=== PATIENT | male | born 1975 | race Caucasian/White ===

== ENCOUNTER → 2017-10-09 | Outpatient (CLI) | payer OTHER ==
--- NOTE | 2017-10-11 14:50 | PCVCIMAG ---
APPROVED REPORT Study performed: 10/09/2017 13:20:48 EXAM: Comprehensive 2D, Doppler, and color-flow Echocardiogram Patient Location: Echo lab Room #: 2Status: routine BSA: 2.43 HR: 74 bpmBP: 124/86 mmHg Rhythm: NSR Other Information Study Quality: Adequate Risk Factors: Cardiac Risk Factors: Hyperlipidemia Indications Palpitations Dilated aortic root,sinus of Valsalva and ascending aorta 2D Dimensions IVSd: 9.71 (7-11mm)LVOT Diam: 25.85 (18-24mm) LVDd: 54.95 mmSinus of Valsalva: 48.00 mm Sinotubular Junction: 41.00 mm PWd: 8.13 (7-11mm)Ascending Ao: 44.00 (22-36mm) LVDs: 31.40 (25-40mm)Aortic Arch: 26.0 (22-36mm) Left Atrium: 31.11 (27-40mm)Desc Ao: 20.0 (20-30mm) Aortic Root: 40.24 mm LV Single Plane 4CH: 51.35 % LV Single Plane 2CH: 71.69 %Lane's LVEF: 61.52 % Biplane EF: 61.0 % Volumes Left Atrial Volume (Systole) Single Plane 4CH: 50.87 mLSingle Plane 2CH: 70.78 mL Biplane LA Volume: 64.00 mLLA ESV Index: 26.00 mL/m2 Aortic Valve AoV Peak Babar.: 1.14 m/s AO Peak Gr.: 5.42 mmHgLVOT Max P.85 mmHg LVOT Max V: 0.98 m/s JACKLYN Vmax: 4.52 cm2 Mitral Valve E/A Ratio: 0.7 MV Decel. Time: 198.91 ms MV E Max Babar.: 0.44 m/s MV A Babar.: 0.66 m/s IVRT: 103.81 ms TDI E/Lateral E': 3.67E/Medial E': 4.40 Medial E' Babar.: 0.10 m/s Lateral E' Babar.: 0.12 m/s Pulmonary Valve PV Peak Babar.: 0.83 m/sPV Peak Gr.: 2.73 mmHg Pulmonary Vein P Vein S: 0.42 m/sP Vein A: 0.35 m/s P Vein D: 0.30 m/sP Vein A Dur.: 103.8 msec P Vein S/D Ratio: 1.40 Tricuspid Valve TV Vmax: 0.55 m/s Left Ventricle The left ventricle is normal size. There is normal LV segmental wall motion. There is normal left ventricular wall thickness. Left ventricular systolic function is normal. The left ventricular ejection fraction is within the normal range. LVEF is 60-65%. The left ventricular diastolic function is normal. Right Ventricle The right ventricle is normal size. The right ventricular systolic function is normal. Atria The left atrium size is normal. The right atrium size is normal. Aortic Valve The aortic valve is normal in structure, trileaflet No aortic regurgitation is present. There is no aortic valvular stenosis. Mitral Valve The mitral valve is normal in structure. Trace mitral regurgitation. No evidence of mitral valve stenosis. Tricuspid Valve The tricuspid valve is normal in structure. Trace tricuspid regurgitation. Unable to assess PA pressure. Pulmonic Valve The pulmonary valve is normal in structure. Trace pulmonic regurgitation. Great Vessels The aortic root is normal in size. Ascending aorta is dilated. Aortic arch is normal in caliber. IVC is normal in size and collapses with >50% inspiration Pericardium There is no pericardial effusion. There is no pleural effusion. <Conclusion> Left ventricular systolic function is normal. There is normal LV segmental wall motion. LVEF 60-65%. Normal diastolic function The aortic valve is normal in structure, trileaflet. No aortic valvular stenosis or insufficiency. The mitral valve is normal in structure. Trace mitral regurgitation. Sinuses of valsalva 4.8cm, sinotubular junction 4.0cm, ascending aorta 4.2cm, descending aorta 2.1cm There is no pericardial effusion.
--- NOTE | 2017-10-11 14:53 | PCVCIMAG ---
APPROVED REPORT Patient Location: Echo lab-[facility] STRESS TEST Room #: 2 Stress Nurse: Penelope Mesa RN INDICATIONS: Pakpitations, L shoulder pain, dilated aortic root The patient exercised according to the Jossue Protocol for 10:09 minutes, achieving a maximum work level of 13.4 METS. The resting heart rate of 92 bpm, ely to a maximal level of 181 bpm. This value represents 101% of the maximal, age-predicted heart rate. The resting blood pressure of 124/86 mmHg, ely to a maximum blood pressure of 180/86 mmHg. The exercise was stopped due to fatigue. Resting EKG: Sinus rhythm, nonspecific T wave abnormality Stress ECG: No ischemic electrocardiographic changes. A single, isolated PVC. Conclusion 1. Maximal treadmill exercise study negative for exercise-induced myocardial ischemia. 2. No subjective signs of ischemia such as chest pain or anginal-like symptoms. No diagnostic ischemic echocardiographic changes. 3. The study was associated with good exercise capacity (13.4 METS)
== END | disposition home or self-care (01) ==
LOC: PCVCIMAG 13:12
PROVIDERS: ATTEND Internal Medicine
DX: R07.9 Chest pain, unspecified (principal); I77.819 Aortic ectasia, unspecified site; Q25.49 Other congenital malformations of aorta
CPT/HCPCS: 93017; 93306